=== PATIENT | male | born 1960 | race Caucasian/White ===

== ENCOUNTER 2022-06-08 19:15 | Emergency (ER) | payer OTHER ==
[2022-06-08 21:07] VITALS: BP 142/82
[2022-06-08 21:16] VITALS: BP 142/84
[2022-06-08 21:30] VITALS: BP 140/85
[2022-06-08 21:45] VITALS: BP 127/75
== END 2022-06-08 22:31 | disposition home or self-care (01) | DRG 204 ==
LOC: ED 19:15
DX: R05.9 Cough, unspecified (principal); Z20.822 Contact with and (suspected) exposure to COVID-19; R09.81 Nasal congestion; M79.10 Myalgia, unspecified site